=== PATIENT | male | born 1990 | race Caucasian/White ===

== ENCOUNTER 2024-01-07 16:56 | Emergency (ER) | payer OTHER, SELFPAY ==
[2024-01-07 17:03] VITALS: BP 133/88
[2024-01-07 17:31] VITALS: BMI 22.5
[2024-01-07] MEDS: DELTASONE 50 MG PO (18:47)
[2024-01-07] MEDS: MOTRIN 600 MG PO (18:48)
[2024-01-07 19:50] VITALS: BP 120/72
--- NOTE | 2024-01-07 20:07 | ED.GENMED ---
History of Present Illness
General
Chief Complaint: Musculo-Skeletal Complaint
Source: patient
Exam Limitations: none
Time Seen by Provider: 01/07/24 17:58
Nursing documentation reviewed up to this point in time: agreed with
Travel History
Have you had any contact with someone who has COVID-19?: No
Do you have any symptoms of coronavirus? Fever > 100 degrees, chills, cough, shortness of breath, sore throat, loss of taste or smell, muscle aches, or headache?: No
History of Present Illness
History of Present Illness:
33-year-old male with no significant past medical history presenting to the emergency department today with concerns of right-sided low back pain with some radiation down the right leg intermittently. This initially started after losing his form
while performing a heavy squat he felt a slight pop to the right low back he has mild pain and then additionally injured it further after falling off of a chair earlier today did not strike his back directly but felt another tweak to his back.
Denies any numbness weakness change in bowel movements or urination. Denies any fevers.
Review of Systems
Review of Systems
Allergies reviewed?: Yes
All Other Systems: ROS reviewed and negative except as documented in HPI and ROS
Phy Exam
Physical Exam
Physical Exam:
GENERAL: Alert , in no apparent distress
EYE: pupils equal and reactive
NECK: Supple, no significant adenopathy.
ENT: o/p clr, mmm.
CARDIAC: Regular rate and rhythm .
LUNGS: Clear breath sounds bilaterally, no acute respiratory distress, no wheezes/rales/rhonchi
ABDOMEN: Soft, without focal tenderness, no r/g, no cvat
NEUROLOGICAL: Alert and oriented, no focal neuro deficits
SKIN: Warm and dry, skin intact.
MUSCULOSKELETAL: No edema, well perfused.
PSYCH: Normal and appropriate interaction.
Course
Orders/Labs/Results
Orders:
Orders
01/07/24 18:42
Ibuprofen [Motrin] 600 mg PO NOW STA
Prednisone [Deltasone] 50 mg PO NOW STA
Lumbar Spine, 2 or 3 View [CR Lumbar Spine 2 Or 3 Views] Urgent
Comment:
Reason For Exam: low back pain after fall
Vital Signs
Initial and Last Documented VS:
Initial Vital Signs
Temp Pulse Resp BP Pulse Ox
97.9 F 54 20 133/88 100
01/07/24 17:03 01/07/24 17:03 01/07/24 17:03 01/07/24 17:03 01/07/24 17:03
Last Documented Vital Signs
Temp Pulse Resp BP Pulse Ox
97.9 F 52 16 120/72 100
01/07/24 17:03 01/07/24 19:50 01/07/24 19:50 01/07/24 19:50 01/07/24 19:50
MDM/Problems Addressed
MDM/Problems Addressed:
33-year-old male presenting to the emergency department today with concerns of right-sided low back discomfort that occurred after heavy lifting at the gym yesterday and also tweak his back after falling off of the chair. No red flag symptoms of
back pain patient with likely mechanical back pain. Neurologically intact. Stable for outpatient management return precautions given.
*Critical Care Note
Total Time (30-74mins, 75-104mins- exclusive of procedures): Not Applicable
ED Attending Note
-
Portions of this chart may have been created with voice recognition software.� Occasional wrong word or��sound alike� substitutions may have occurred due to the inherent limitations of voice recognition software.
Discharge Plan
Departure
Patient Disposition: Home (Routine Discharge)
Date of Disposition: 01/07/24
Time of Disposition: 20:07
Patient with high blood pressure during this ER visit?: No
Condition: Good
Covid-19: Not Applicable
Discharge Problem:
Back pain
Instructions: Back Exercises, Back Pain
Prescriptions:
New
cyclobenzaprine 10 mg tablet
10 mg PO HS PRN (Reason: spasm) Qty: 7 0RF
prednisone 20 mg tablet
40 mg PO DAILY 4 Days Qty: 6 0RF
ibuprofen 600 mg tablet
600 mg PO Q8H PRN (Reason: Pain) Qty: 10 0RF
Referrals:
Marek De Leon MD [Active] - Follow up in 5-7 days
UNKNOWN - PT DOES,NOT KNOW [Family Provider] -
Activity Restrictions/Additional Instructions:
You came to the emergency department today with concerns of back discomfort. Please take the prescribed medications to help with symptoms. Return to the emergency department for any worsening, new or concerning symptoms.
Interventions
Interventions:
*Risk Screen - Suicide Last Done: 01/07/24 17:31
*General Assessment Last Done: 01/07/24 17:33
*Neglect/Abuse Screening Last Done: 01/07/24 17:31
ED- Fall Risk Assessment Last Done: 01/07/24 17:31
*ED COVID-19 Vaccine History Last Done: 01/07/24 17:31
ED-Musculoskeletal Assessment Last Done: 01/07/24 17:31
Discharge Date and Time
Print Language: [id number]
== END 2024-01-07 20:18 | disposition home or self-care (01) ==
LOC: EMR 16:56
PROVIDERS: EMERGENCY PHYSICIAN Emergency Medicine
DX: M54.9 Dorsalgia, unspecified (principal); W07.XXXA Fall from chair, initial encounter
CPT/HCPCS: 99283